=== PATIENT | male | born 1995 | race Caucasian/White ===

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

== ENCOUNTER 2019-03-03 12:42 | Emergency (ER) | payer SELFPAY ==
--- NOTE | 2019-03-03 12:52 | UC ---
Abdominal Pain Male HPI - HPI Summary HPI Summary: 23 yo male presents with GI complaint. He tells me that last night he ate pasta and meatballs for dinner with a new sauce. Around 1999 he began to feel his stomach uneasy. Around 2300 he vomited and had loose stool. He was up all night with vomiting and diarrhea (about 7-10 times). Has not vomited since around 1100 this morning and has been tolerating sips of water. Has generalized abdominal cramping. Denies recent illness, fever, SOB, chest pain, dysuria, blood in stool or vomit. - History of Current Complaint Stated Complaint: VOMITING Time Seen by Provider: 03/03/19 12:52 Hx Obtained From: Patient Onset/Duration: Sudden Onset Severity Initially: Mild Severity Currently: Mild Pain Intensity: 4 Pain Scale Used: 0-10 Numeric - Allergies/Home Medications Allergies/Adverse Reactions: Allergies Allergy/AdvReac Type Severity Reaction Status Date / Time cat Allergy respiratory Uncoded 03/03/19 13:21 seasonal Allergy respiratory Uncoded 03/03/19 13:21 PMH/Surg Hx/FS Hx/Imm Hx - Additional Past Medical History Additional PMH: None - Surgical History Surgical History: None - Family History Known Family History: Positive: None - Social History Occupation: Student Lives: Dormitory/Roommates Alcohol Use: Occasionally Substance Use Type: None Smoking Status (MU): Never Smoked Tobacco Review of Systems All Other Systems Reviewed And Are Negative: No Constitutional: Positive: Negative Skin: Positive: Negative Eyes: Positive: Negative ENT: Positive: Negative Respiratory: Positive: Negative Cardiovascular: Positive: Negative Gastrointestinal: Positive: Vomiting, Diarrhea, Nausea Genitourinary: Positive: Negative Neurological: Positive: Negative Psychological: Positive: Negative Physical Exam - Summary Physical Exam Summary: GENERAL: NAD. WDWN. No pain distress. SKIN: No rashes, sores, lesions, or open wounds. NECK: Supple. Nontender. No lymphadenopathy. CHEST: CTAB. No r/r/w. No accessory muscle use. Breathing comfortably and in no distress. CV: RRR. Pulses intact. Cap refill <2seconds ABDOMEN: Soft. Mild generalized tenderness. No distention or guarding. No CVA tenderness. Bowel sounds present. No mcburney point tenderness. Negative rovsing 's and psoas sign. NEURO: Alert. PSYCH: Age appropriate behavior. Triage Information Reviewed: Yes Vital Signs: Vital Signs: Temp Pulse Resp BP Pulse Ox 99.7 F 125 18 119/80 99 03/03/19 13:24 03/03/19 13:24 03/03/19 13:24 03/03/19 13:24 03/03/19 13:24 Laboratory Tests 03/03/19 13:29 Influenza A (Rapid) Negative Influenza B (Rapid) Negative Vital Signs Reviewed: Yes Abd Pain Male Course/Dx - Course Course Of Treatment: POC flu negative. Suspect gastroenteritis. Pt has not vomited in >2 hours and is feeling better s/ p zofran. He was able to tolerate po water. Discussed sign/symptoms of appendicitis and made him aware that if his symptoms worsen or if he develops a fever to go to the ED immediately. - Differential Dx/Clinical Impression Provider Diagnosis: Gastroenteritis Discharge ED - Sign-Out/Discharge Documenting (check all that apply): Patient Departure All imaging exams completed and their final reports reviewed: No Studies - Discharge Plan Condition: Stable Disposition: HOME Prescriptions: Ondansetron ODT TAB* [Zofran 4 MG Odt TAB*] 4 mg PO Q8H PRN #12 tab.odt PRN Reason: Nausea Patient Education Materials: Gastroenteritis (ED) Referrals: No Primary Care Phys,[facility] [Primary Care Provider] - Additional Instructions: I suspect your symptoms are related to gastroenteritis. Please rest and drink clear fluids. Advance your diet as tolerated starting with a BRAT diet of bananas, rice, applesauce, and toast. If you develop a fever or if you develop worsening symptoms - please go to the ER immediately. - Billing Disposition and Condition Condition: STABLE Disposition: Home
[2019-03-03] MEDS ORDERED: Ondansetron ODT TAB* 4 MG SL ONE (12:57)
[2019-03-03 13:28] VITALS: BP 119/80
[2019-03-03 13:40] LABS: Influenza A Molecular NEGATIVE (Negative); Influenza B Molecular NEGATIVE (Negative)
== END 2019-03-03 14:14 | disposition home or self-care (01) ==
LOC: UCEAST 12:42
DX: K52.9 Noninfective gastroenteritis and colitis, unspecified (principal); Z91.09 Other allergy status, other than to drugs and biological substances
CPT/HCPCS: 99212; A9270-GY; G0463